=== PATIENT | male | born 1960 | race Caucasian/White ===

== ENCOUNTER 2018-11-16 01:50 | Outpatient (CLI) | payer MEDICARE, MEDICAID, SELFPAY ==
--- NOTE | 2018-11-16 08:10 | DI.RAD_ITS ---
SYMPTOM/DIAGNOSIS: H/O HEAD AND NECK CA, ASSESS FOR DISEASE RECURRENCE FRONTAL AND LATERAL CHEST: Comparison is made with 10/12/17. Heart size and pulmonary vasculature are within normal limits. The lungs are clear and well expanded. No effusions or pneumothoraces are identified. Old healed left rib fractures are again seen. No pulmonary nodules are appreciated. IMPRESSION: No acute pulmonary process.
== END 2018-11-16 02:10 ==
PROVIDERS: PCP Nurse Practitioner; Visit Provider Nurse Practitioner
DX: C76.0 Malignant neoplasm of head, face and neck (principal); C32.0 Malignant neoplasm of glottis; Z12.89 Encounter for screening for malignant neoplasm of other sites
CPT/HCPCS: 71046

== ENCOUNTER 2018-11-27 14:27 | Outpatient (CLI) | payer MEDICARE, MEDICAID, SELFPAY ==
[2018-11-27 15:04] LABS: Abs Immature Grans 0.01 k/cumm (0.0-0.09); Absolute Basophil Count 0.05 k/cumm (0.0-0.2); Absolute Eosinophil Count 0.11 k/cumm (0.0-0.7); Absolute Lymphocyte Count 1.27 k/cumm (1.2-3.4); Absolute Monocyte Count 0.45 k/cumm (0.11-0.7); Absolute Neutrophil Count 3.43 k/cumm (1.2-6.7); Basophils % 0.9; Eosinophils % 2.1; HCT 39.5 % (40.0-50.0); HGB 13.4 g/dL (13.5-17.5); Immature Grans % 0.2; Lymphocytes % 23.9; Mean Corp. HGB Concentration 33.9 g/dL (32.0-36.0); Mean Corpuscular Hemoglobin 32.1 pg (27.0-33.0); Mean Corpuscular Volume 94.5 fL (80-95); Mean Platelet Volume 10.2 fL (8.0-11.0); Monocytes % 8.5; Neutrophils % 64.4; Platelet Count 179 x1000/uL (130-400); RBC 4.18 m/cumm (4.50-6.00); RBC Distribution Width 13.1 % (11.8-14.1); White Blood Cell Count 5.32 k/cumm (4.4-10.8)
[2018-11-27 16:30] LABS: ALT 78 U/L (12-78); AST 75 U/L (15-37); Albumin 3.7 g/dL (3.4-5.0); Alkaline Phosphatase 92 U/L (46-116); Anion Gap 9.3 mmol/L (3-11); BUN 6 mg/dL (7-18); Bilirubin, Total 0.4 mg/dL (0.2-1.0); CO2 26.7 mmol/L (21.0-32.0); CREATININE 0.91 mg/dL (0.70-1.30); Calcium 9.2 mg/dL (8.5-10.1); Chloride 101 mmol/L (98-107); Glucose 120 mg/dL (70-100); Potassium 4.2 mmol/L (3.5-5.1); Sodium 137 mmol/L (136-145); TSH 5.84 uIU/mL (0.358-3.74); Total Protein 7.2 g/dL (6.4-8.2)
== END 2018-11-27 14:47 ==
PROVIDERS: PCP Nurse Practitioner; Visit Provider Nurse Practitioner
DX: C76.0 Malignant neoplasm of head, face and neck (principal); E03.9 Hypothyroidism, unspecified
CPT/HCPCS: 36415; 80053; 84443; 85025

== ENCOUNTER 2019-03-16 02:02 | Outpatient (CLI) | payer MEDICARE, MEDICAID, SELFPAY ==
[2019-03-16 08:38] LABS: TSH (W/Ref FT4) 0.71 uIU/mL (0.358-3.74)
== END 2019-03-16 02:22 ==
PROVIDERS: PCP Family Medicine; Visit Provider Family Medicine
DX: E89.0 Postprocedural hypothyroidism (principal)
CPT/HCPCS: 36415; 84443

== ENCOUNTER → 2019-05-21 10:32 | Outpatient (BNVA) | payer OTHER, MEDICAID, SELFPAY | PROVIDERS: PCP Family Medicine; Referring Provider Family Medicine; Visit Provider Physical Therapy Assistant | DX: Z12.11 Encounter for screening for malignant neoplasm of colon (principal); Z85.21 Personal history of malignant neoplasm of larynx ==

== ENCOUNTER 2019-07-03 09:02 | Day surgery (SDC) | payer OTHER, SELFPAY ==
--- NOTE | 2019-07-03 07:15 | W.PM.HP.N ---
Date of service: 07/03/19 Time of Service: 09:45 Assessment and Plan (1) Encounter for screening colonoscopy: Current visit: No Status: Acute The patient is here for his first Colonoscopy pre-op. He has no family history of colon cancer. He has not had any bowel habit changes. -Discussed colonoscopy bowel prep as well as the procedure. Discussed possible complications of the procedure to include bleeding, pain, perforation, missed small lesion/polyp, sore throat, aspiration and adverse reaction to the medications. Questions were answered to patient?s satisfaction. No guarantees were implied or given. -He will be under going esophageal dilation on 06/04/19 prior to his procedure. -He will perform his tracheostomy care prior to his procedure to ensure a clear airway. 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 He denies a family history of colon cancer. He denies any changes in bowel habits including bloody or black tarry stools, abdominal pain, diarrhea or constipation. He denies constitutional symptoms. Denies use of marijuana or any other recreational or illegal drugs. He denies chest pain, palpitations, dyspnea or dyspnea with exertion. He denies prior history or family history of adverse reactions or complications with anesthesia. He under goes esophageal dilation x 3 months and is due to have his next treatment on 06/04/19, prior to his Colonoscopy. He has a tracheostomy, which he reports he is independent with its care. He will clear out any mucus prior to his procedure to ensure he has a clear airway. [facility] Medical History Genital herpes (Acute) High cholesterol (Chronic) Hypothyroidism (Chronic) Larynx cancer (Acute) Peripheral neuropathy (Acute) Thyroid cancer (Acute) Surgical History H/O thyroidectomy (Chronic) History of tracheostomy (Acute) Social History Smoking/Tobacco Use Status: Former Tobacco Use Drug use: Never Substance use type: does not use Details: alcohol: t-14 Do you feel safe at home: Yes Do you feel safe in your relationship?: Yes Meds Home Medications Medication Instructions Recorded Confirmed Type oxycodone 5 mg PO TID 04/07/15 07/03/19 History acyclovir 200 mg capsule 400 mg PO Q4H cap 03/09/19 07/03/19 History food supplemt, lactose-reduced ml PO ml 03/09/19 05/21/19 History 0.04 gram-1 kcal/mL oral liquid gabapentin 300 mg capsule 600 mg PO TID cap 03/09/19 07/03/19 History levothyroxine 100 mcg capsule 100 mcg PO DAILY 03/09/19 07/03/19 History nystatin 100,000 unit/gram topical 1 applic TP BID PRN 03/09/19 07/03/19 History cream acetaminophen [Tylenol] 325 mg PO ONCE PRN 07/03/19 07/03/19 History Allergies Allergy/AdvReac Type Severity Reaction Status Date / Time venom-honey bee Allergy Severe Anaphylaxsi Unverified 07/03/19 09:20 [bee venom (honey bee)] s Penicillins Allergy Intermediate Hives Unverified 07/03/19 09:21 Exam Resp Effort & Inspection: normal respiratory effort Auscultation: clear to auscultation bilaterally Cardio Rate: regular rate Rhythm: regular rhythm
--- NOTE | 2019-07-03 07:16 | W.COLOREPORT ---
Date of service: 07/03/19 Time of Service: 10:08 Colonoscopy Report Date of procedure: 07/03/19 Pre-op diagnosis general: Colon Cancer Screening Post-op diagnosis procedure note: same (and mild diverticulosis of the sigmoid colon) Procedure: Colonoscopy Surgeon: Julieta Noyola Anesthesia proc note operative: other (General/ ASA 3/Sheila Shepherd, GAMAL) Estimated blood loss (mL): 0 Pathology: none sent Complications: None Disposition: same day Indications: Mr. Gunderson is a pleasant 58 year old male who was seen in the office for his first colonoscopy. He has no family history of colon cancer that he is aware of. Risks, benefits and complications have been reviewed. Complications include but are not limited to bleeding, pain, perforation, missed small lesion/polyp, sore throat, aspiration and adverse reaction to the medications. Questions were entertained and answered to their satisfaction and they wished to proceed. No guarantees were given or implied. Prep: Miralax/Dulcolax Procedure Start Time: 10:08 Procedure End Time: 10:31 Retraction Time: 14 Findings: Mild diverticulosis otherwise normal colon Procedure Description: After informed consent was obtained the patient was taken to the procedure room and placed in a left decubitous position. Monitors were applied and a time out was done. The patients name, date of , procedure, allergies to medications and metal in their body was reviewed. The patient was then sedated. Once sedated and comfortable a rectal exam was done. External exam was normal. Internal exam revealed a normal sphincter tone and no palpable masses. The prostate could not be felt. The scope was then introduced and retro-flexed. No internal hemorrhoids were identified. The scope was then advanced to the cecum without difficulty. The TI and appendiceal orifice were identified. The prep was adequate. The scope was then slowly retracted over 14 minutes back into the rectum. There were no polyps identified. There was mild diverticulosis of the sigmoid colon. The scope was removed and the patient was woken up and taken back to Same day surgery in stable condition. The patient tolerated the procedure well and there were no immediate complications. Follow up: The patient should follow up in 10 years unless they develop changes in bowel habits or other new gastrointestinal complaints.
--- NOTE | 2019-07-03 07:18 | W.PM.DSUDISC ---
Discharge Plan Disposition Patient Disposition: HOME Condition: Good Discharge Details Reason For Visit: Colonoscopy Attending Provider: Julieta Noyola Primary Care Provider: Kasey العراقي Home Meds and New Rx's Prescriptions: Continued acyclovir 200 mg capsule 400 mg PO Q4H RF: 0 nystatin 100,000 unit/gram cream 1 applic TP BID PRNRF: 0 Boost 0.04 gram- 1 kcal/mL liquid PO RF: 0 levothyroxine 100 mcg capsule 100 mcg PO DAILY RF: 0 gabapentin 300 mg capsule 600 mg PO TID RF: 0 oxycodone 5 MG tablet 5 mg PO TID RF: 0 Discontinued polyethylene glycol 3350 17 gram/dose powder 238 g PO ONCE Qty: 238 RF: 0 bisacodyl [Dulcolax (bisacodyl)] 5 mg tablet,delayed release (DR/EC) 5 mg PO ONCE Qty: 4 RF: 0 No Action acetaminophen [Tylenol] 325 mg Capsule 325 mg PO ONCE PRNRF: 0 Discharge Instructions Instructions: Colonoscopy (GEN), Diverticulosis (ED) Additional Instructions: Findings: Mild diverticulosis Follow up: 10 years Please call if you develop: fevers >101.5 Nausea or Vomiting Abdominal pain that is not transient DAY SURGERY UNIT POST COLONOSCOPY INSTRUCTIONS 1. Because there will be medication in your system for the next 24 hours, you may feel a little sleepy. Your coordination will be affected. Therefore: a. Do not drive or operate dangerous equipment for 24 hours. b. Do not drink alcohol beverages for 24 hours (not even beer). c. Plan to go home and rest for the day. 2. Generally there are no restrictions on your activity after a day or so has gone by, but you may feel a bit fatigued for a few days. 3 After you arrive home you may have a light meal and return to a normal diet as you can tolerate it without feeling sick to your stomach. 4. After surgery, you may feel pain or discomfort. This should be only transient, but if it persists please contact your doctor. 5. If there are any questions regarding the findings of your procedure, please feel free to contact your doctor. 6. If you are unable to contact your doctor with a problem, contact the hospital at [phone]. 7. Continue all your regular medications unless directed otherwise. I understand the above instructions and have no questions. Signature of Patient or Responsible Adult Escort Date/Time Name of Responsible Adult Escort Signature of Nurse Date/Time Activity:: Activity as Tolerated Diet:: High Fiber diet Discharge Orders Discharge Orders: Discharge Order (Routine); Ordered 07/03/19 Ordered By: Julieta Noyola DS: Diagnosis Discharge Diagnosis (1) Encounter for screening colonoscopy: Status: Acute
[2019-07-03 09:16] VITALS: TEMP 36.3
[2019-07-03 09:26] VITALS: BP 131/83; PULSE 76; RESP 16; TEMP 36.3; O2SAT 100
[2019-07-03] MEDS: Lactated Ringers 1,000 ML 80 ML IV (09:45)
[2019-07-03] MEDS: Lidocaine 2% Pres-Free 5 ML VIAL (10:05)
[2019-07-03] MEDS: PROPOFOL 500 MG/50 ML BTL 45.4 MG (10:05)
--- NOTE | 2019-07-03 10:15 | NUR.NOTE ---
Nursing Note: Abdominal pressure applied for scope advancement.
[2019-07-03 11:11] VITALS: BP 131/78; PULSE 67; RESP 16; TEMP 36.6; O2SAT 98
== END 2019-07-03 11:28 | disposition home or self-care (01) ==
LOC: SUR 09:03
PROVIDERS: PCP Family Medicine; Visit Provider Surgery
PROC: 0DJD8ZZ Inspection of Lower Intestinal Tract, Via Natural or Artificial Opening Endoscopic (ICD-10-PCS; CPT 45378; principal; 2019-07-03 10:00)
DX: Z12.11 Encounter for screening for malignant neoplasm of colon (principal); K57.30 Diverticulosis of large intestine without perforation or abscess without bleeding; Z85.21 Personal history of malignant neoplasm of larynx; Z93.0 Tracheostomy status
CPT/HCPCS: G0121; NC

== ENCOUNTER 2019-11-01 08:44 | Outpatient (CLI) | payer OTHER, SELFPAY | END 2019-11-01 09:04 | PROVIDERS: PCP Family Medicine; Visit Provider Nurse Practitioner | DX: E03.9 Hypothyroidism, unspecified (principal) | CPT/HCPCS: 36415; 84443 ==

== ENCOUNTER 2020-04-11 02:03 | Outpatient (CLI) | payer OTHER, MEDICAID, SELFPAY ==
[2020-04-11 08:35] LABS: Abs Immature Grans 0.03 k/cumm (0.0-0.09); Absolute Basophil Count 0.05 k/cumm (0.0-0.2); Absolute Eosinophil Count 0.13 k/cumm (0.0-0.7); Absolute Lymphocyte Count 1.47 k/cumm (1.2-3.4); Absolute Monocyte Count 0.78 k/cumm (0.11-0.7); Absolute Neutrophil Count 5.07 k/cumm (1.2-6.7); Basophils % 0.7; Eosinophils % 1.7; HGB 14.7 g/dL (13.5-17.5); Immature Grans % 0.4 %; Lymphocytes % 19.5; Mean Corpuscular Hemoglobin 33.7 pg (27.0-33.0); Mean Corpuscular Volume 96.3 fL (80-95); Mean Platelet Volume 10.2 fL (8.0-11.0); Monocytes % 10.4; Neutrophils % 67.3; Platelet Count 242 x1000/uL (130-400); RBC 4.36 m/cumm (4.50-6.00); RBC Distribution Width 13.3 % (11.8-14.1); White Blood Cell Count 7.53 k/cumm (4.4-10.8)
[2020-04-11 09:38] LABS: ALT 86 U/L (16-63); AST 91 U/L (15-37); Albumin 3.6 g/dL (3.4-5.0); Alkaline Phosphatase 105 U/L (46-116); Anion Gap 9.1 mmol/L (3-11); BUN 5 mg/dL (7-18); Bilirubin, Total 0.9 mg/dL (0.2-1.0); CO2 26.9 mmol/L (21.0-32.0); CREATININE 0.88 mg/dL (0.70-1.30); Calcium 8.6 mg/dL (8.5-10.1); Chloride 103 mmol/L (98-107); Glucose 94 mg/dL (74-106); Potassium 4.2 mmol/L (3.5-5.1); Sodium 139 mmol/L (136-145); TSH 1.63 uIU/mL (0.36-3.74); Total Protein 7.2 g/dL (6.4-8.2)
== END 2020-04-11 02:23 ==
PROVIDERS: PCP Family Medicine; Visit Provider Nurse Practitioner
DX: C76.0 Malignant neoplasm of head, face and neck (principal); E03.9 Hypothyroidism, unspecified
CPT/HCPCS: 36415; 80053; 84443; 85025

== ENCOUNTER 2020-07-04 10:09 | Outpatient (REF) | payer OTHER, MEDICAID, SELFPAY ==
[2020-07-04 22:16] LABS: Iron 138 ug/dL (65-175); Total Iron Binding Capacity 238 ug/dL (250-450); Transferrin Sat 58 % (20-55)
[2020-07-04 22:52] LABS: ALT 57 U/L (16-63); AST 56 U/L (15-37); Albumin 3.6 g/dL (3.4-5.0); Alkaline Phosphatase 111 U/L (46-116); Bilirubin, Total 0.6 mg/dL (0.2-1.0); Total Protein 7.3 g/dL (6.4-8.2)
[2020-07-04 22:59] LABS: Ferritin 1366 ng/mL (26-388)
[2020-07-04 23:13] LABS: Bilirubin, Direct 0.15 mg/dL (0.00-0.20)
[2020-07-07 09:52] LABS: HBs Antibody, Quant <3.1 mIU/mL (See Note); Hepatitis B Surface Ab Negative (See Note)
[2020-07-07 10:08] LABS: Hepatitis B Surface Ag Negative (Negative)
[2020-07-07 10:50] LABS: Hepatitis C Ab w Rflx HCV PCR Negative (Negative)
[2020-07-07 11:05] LABS: Hep B Core Antibody Negative (Negative)
== END 2020-07-04 10:29 ==
LOC: NCHCN 10:09
PROVIDERS: PCP Family Medicine; Visit Provider Family Medicine
DX: R79.89 Other specified abnormal findings of blood chemistry (principal); Z11.59 Encounter for screening for other viral diseases
CPT/HCPCS: 80076; 86704; 86706; 86803; 87340; 82728; 83540; 83550

== ENCOUNTER 2020-09-12 08:42 | Outpatient (REF) | payer OTHER, MEDICAID, SELFPAY ==
[2020-09-12 20:26] LABS: Iron 108 ug/dL (65-175); Total Iron Binding Capacity 250 ug/dL (250-450); Transferrin Sat 43 % (20-55)
[2020-09-12 20:32] LABS: Ferritin 811 ng/mL (26-388); GGT 163 U/L (15-85)
[2020-09-13 20:53] LABS: ALT 67 U/L (16-63); AST 56 U/L (15-37); Albumin 3.8 g/dL (3.4-5.0); Alkaline Phosphatase 108 U/L (46-116); Bilirubin, Total 0.7 mg/dL (0.2-1.0); Total Protein 7.2 g/dL (6.4-8.2)
== END 2020-09-12 09:02 ==
LOC: NCHCN 08:42
PROVIDERS: PCP Family Medicine; Visit Provider Family Medicine
DX: R79.89 Other specified abnormal findings of blood chemistry (principal)
CPT/HCPCS: 80076; 81256; 82728; 82977; 83540; 83550

== ENCOUNTER 2020-10-28 00:30 | Outpatient (CLI) | payer OTHER, MEDICAID, SELFPAY ==
--- NOTE | 2020-10-28 | DI.US_ITS ---
EXAM: US ABDOMEN CLINICAL HISTORY: ELEVATED LFT'S,R79.89 TECHNIQUE: Ultrasound abdomen performed using standard protocol. COMPARISON: No exams were available for comparison FINDINGS: ABDOMINAL AORTA AND IVC: Visualized portions normal caliber. PANCREAS: Normal where visualized. LIVER: There is increased echogenicity of the liver consistent with fatty infiltration. The liver me asures 14.7 cm in length. Hepatopedal flow in the Portal Vein. GALLBLADDER: No evidence of cholelithiasis. No evidence of wall thickening. No pericholecystic fluid identified. BILIARY SYSTEM: Common bile duct measures < 7 mm. No intrahepatic biliary ductal dilation. MAYO'S SIGN: Negative. KIDNEYS: Kidneys are symmetric in size. No evidence of renal calculi. No evidence of hydronephrosis. No renal mass or cyst identified. SPLEEN: Not enlarged. ASCITES: None seen. IMPRESSION: Fatty infiltration of the liver. DATA REPOSITORY:
== END 2020-10-28 00:50 ==
PROVIDERS: PCP Family Medicine; Visit Provider Family Medicine
DX: K76.0 Fatty (change of) liver, not elsewhere classified (principal); R79.89 Other specified abnormal findings of blood chemistry
CPT/HCPCS: 76700

== ENCOUNTER 2020-12-30 09:12 | Outpatient (REF) | payer OTHER, MEDICAID, SELFPAY ==
[2020-12-31 14:32] LABS: COVID-19 RT-PCR UVMMC Result Negative (Negative)
== END 2020-12-30 09:13 | disposition home or self-care (01) ==
LOC: NCHCN 09:12
PROVIDERS: PCP Family Medicine; Visit Provider Family Medicine
DX: Z20.822 Contact with and (suspected) exposure to COVID-19 (principal); Z01.818 Encounter for other preprocedural examination
CPT/HCPCS: U0003

== ENCOUNTER 2021-01-06 13:17 | Outpatient (REF) | payer OTHER, MEDICAID, SELFPAY ==
[2021-01-06 16:15] LABS: HCT 47.8 % (40.0-50.0); MCH 32.9 pg (27.0-33.0); MCHC 33.5 % (32.0-36.0); MCV 98.4 fL (80-95); MPV 11.2 fL (8.0-11.0); Platelet Count 265 10^3/uL (130-400); RBC 4.86 10^6/uL (4.36-5.78); RDW 12.8 % (11.8-14.1); RDW-SD 46.5 fL; WBC 5.87 10^3/uL (4.4-10.8)
[2021-01-06 17:41] LABS: ALT 49 U/L (16-63); AST 55 U/L (15-37); Albumin 3.6 g/dL (3.4-5.0); Alkaline Phosphatase 103 U/L (46-116); Bilirubin, Total 0.5 mg/dL (0.2-1.0); Ferritin 545 ng/mL (26-388); TSH (W/Ref FT4) 1.44 uIU/mL (0.36-3.74); Total Protein 7.5 g/dL (6.4-8.2)
[2021-01-06 18:01] LABS: Bilirubin, Direct 0.09 mg/dL (0.00-0.20)
[2021-01-14 18:31] LABS: Result Summary NEGATIVE; Specimen WB Whole Blood
== END 2021-01-06 13:18 | disposition home or self-care (01) ==
LOC: NCHCN 13:17
PROVIDERS: PCP Family Medicine; Visit Provider Family Medicine
DX: K76.0 Fatty (change of) liver, not elsewhere classified (principal); R79.89 Other specified abnormal findings of blood chemistry; E89.0 Postprocedural hypothyroidism
CPT/HCPCS: 80076; 85027; 81256; 82728; 84443

== ENCOUNTER 2021-01-26 03:55 | Outpatient (RCR) | payer OTHER, MEDICAID, SELFPAY ==
--- NOTE | 2021-01-26 10:00 | HOLTER_ITS ---
APPROVED REPORT Exam Type: HOLTER MONITOR APPLICATION Reason for Test: TACH Patient Location: O Conclusion This was a 24-hour Holter monitor ordered for tachycardia Rhythm throughout was sinus. Average heart rate was 85. Minimum was 64 and maximum 155 There were no significant ventricular or supraventricular dysrhythmias There was no atrial fibrillation, no high-grade AV block, no pauses greater than 3 seconds No patient symptoms were reported
== END 2021-02-11 23:59 | disposition home or self-care (01) ==
LOC: RT 03:55
PROVIDERS: PCP Family Medicine; Visit Provider Family Medicine
DX: R00.0 Tachycardia, unspecified (principal)
CPT/HCPCS: 93227; 93225; 93226

== ENCOUNTER 2021-01-28 09:02 | Outpatient (REF) | payer OTHER, MEDICAID, SELFPAY ==
[2021-01-28 15:39] LABS: Anion Gap 11.2 mmol/L (3-11); BUN 4 mg/dL (7-18); CO2 27.8 mmol/L (21.0-32.0); CREATININE 0.7 mg/dL (0.70-1.30); Calcium 9.6 mg/dL (8.5-10.1); Chloride 105 mmol/L (98-107); Glucose 96 mg/dL (74-106); Potassium 4.3 mmol/L (3.5-5.1); Sodium 144 mmol/L (136-145)
== END 2021-01-28 09:03 | disposition home or self-care (01) ==
LOC: NCHCN 09:02
PROVIDERS: PCP Family Medicine; Visit Provider Family Medicine
DX: R00.0 Tachycardia, unspecified (principal)
CPT/HCPCS: 80048

== ENCOUNTER 2021-05-04 00:38 | Outpatient (CLI) | payer OTHER, MEDICAID, SELFPAY ==
--- NOTE | 2021-05-04 | DI.NM_ITS ---
APPROVED REPORT Exam: Pharmacologic with low level exercise Patient Location: Out-Patient Room/Bed: Stress Nurse: Junie Dillon RN; Mer Torres RN Ordering Provider:RADHA RASCON, Contact Number: [phone] BMI: 22.91 Baseline Rhythm: Sinus Rhythm Comment: T wave inversion lead III Indications: tachycardia, BENITEZ Medical History Medical History: HLD, hypothyroid, larynx cancer, thyroid cancer, peripheral neuropathy Cardiac Medications: gabapentin, levothyroxine, oxycodone Allergies: PCN, honey bee venom Cardiac Risk Factors: HTN, HLD, former smoker Previous Cardiac Procedures: none Pretest Chest Pain Characteristics: none Exercise History: Sedentary Physical Disabilities: none Lung Sounds: Clear to auscultation Heart Sounds: Regular Stress Test Details Test: Pharmacologic stress was paired with low level exercise. Nuclear Acquisition: Rest Tc-99m/Stress Tc-99m 1 day Rest Isotope: Tc-99m Sestamibi. Dose: 10.5 Date: 05/04/2021 Injection Time: 1100 Stress Isotope: Tc-99m Sestamibi. Dose: 32.8 Date: 05/04/2021 Injection Time: 1235 HR Resting HR Supine: 77 bpm Max Heart Rate (APMHR): 158 bpm Resting HR Standin bpm Target HR (85% APMHR): 134 bpm Max HR Achieved: 162 bpm % of APMHR: 102 Recovery HR: 98 bpm HR response to stress: Accelerated HR response to stress BP Resting BP Supine: 130/86 mmHg Resting BP Standin/92 mmHg Max BP: 152/84 mmHg Recovery BP: 128/82 mmHg ECG Resting ECG: Sinus Rhythm Ectopy: none Comment: T wave inversion lead III Stress ECG: Sinus Tachycardia ST Change: No significant ST segment changes noted Arrhythmia: none Recovery ECG: Sinus Rhythm Recovery ST Change: No significant ST segment changes noted Recovery Arrhythmia: none Clinical Reason for Termination: inability to safely walk on treadmill Stress Symptoms: SOB Exercise duration: 0 min40 sec Rate Pressure Product: [id number] Stress ECG Conclusion 1. The resting electrocardiogram showed poor R wave progression, nonspecific IVCD 2. Patient exercised briefly on the treadmill and then received pharmacologic stress with regadenoson 3. Accelerated heart rate response to exercise. The patient achieved greater than 100% of predicted heart rate for age 4. Electrocardiographically there was no evidence of myocardial ischemia with exercise Stress Test Summary STAGE Time (mins) Speed (mph) Grade (%) HR BP SYMPTOMS METS Supine 77 130/86 Standing 88 138/92 1 min post Lexiscan injection 138 SOB 3 min post Lexiscan injection 143 152/84 6 min post Lexiscan injection 115 146/84 SOB resolved 9 min post Lexiscan injection 98 128/82 exercise suspended, pt unable to walk safely on treadmill for Andrae Protocol. Lexiscan with low level exercise with treadmill speed 1.2MPH and 0% grade MPI Conclusion Myocardial perfusion is normal without evidence of ischemia or prior infarction EF is 79% Radiologist Interpretation Radiologist agrees with Net Application Support Specialist's Interpretation. Radiologist Interpretation by: Ricky Menchaca MD Interpretation Date/Time: 05/05/2021 14:39:07
[2021-05-04] MEDS: Regadenoson 0.4 MG/5 ML SYR IVP (12:58)
== END 2021-05-04 00:58 ==
PROVIDERS: PCP Family Medicine; Visit Provider Family Medicine
DX: R00.0 Tachycardia, unspecified (principal); R06.09 Other forms of dyspnea; I10 Essential (primary) hypertension; E78.5 Hyperlipidemia, unspecified; Z87.891 Personal history of nicotine dependence
CPT/HCPCS: 78452; 93016; 93018; 93017; J2785

== ENCOUNTER 2021-08-25 00:56 | Outpatient (CLI) | payer OTHER, MEDICAID, SELFPAY ==
--- NOTE | 2021-08-25 13:56 | DI.US_ITS ---
APPROVED REPORT EXAM: Comprehensive 2D, Doppler, and color-flow Echocardiogram Patient Location: Out-Patient Casino Runner: Hafsa Motley RDCS (AE) Indications: Tachycardia, BENITEZ Other Information Study Quality: Fair. Technically limited study due to body habitus. Conclusion Normal left ventricular wall thickness and chamber size. Estimated ejection fraction is 55%. There are no segmental wall motion abnormalities Normal right ventricular size and systolic function Both atria are normal in size There are no structural or hemodynamically significant valvular abnormalities Wall motion Left Ventricle The left ventricle is normal size. The left ventricular systolic function is normal. The left ventric ular ejection fraction is within the normal range. There is normal left ventricular wall thickness. T here is normal LV segmental wall motion.. There is no ventricular septal defect visualized. LVEF is 5 5%. Right Ventricle The right ventricle is normal size. The right ventricular systolic function is normal. The RVSP is 18 .5mmHg. Atria The left atrium size is normal. The right atrium size is normal. The interatrial septum is intact wit h no evidence for an atrial septal defect. Aortic Valve The aortic valve is normal in structure. Aortic valve is trileaflet. There is no aortic valvular sten osis. No aortic regurgitation is present. Mitral Valve The mitral valve is normal in structure. No evidence of mitral valve stenosis. Trace mitral regurgita tion. Tricuspid Valve The tricuspid valve is normal in structure. There is no tricuspid valve stenosis. Trace tricuspid reg urgitation. Pulmonic Valve The pulmonary valve is normal in structure. There is no pulmonic valvular stenosis. Trace pulmonic re gurgitation. Great Vessels The aortic root is normal in size. The ascending aorta is normal in size. IVC is normal in size and c ollapses >50% with inspiration. Pericardium There is no pericardial effusion. 2D Dimensions IVSD d PLAX 0.75 cm M: 0.6-1.2 LV Vol A2C d MOD 54.1 mL LVPW d PLAX 0.79 cm M: 0.6 - 1.2 LV Vol A4C d MOD 59.2 mL LVID d PLAX 4.34 cm M: 4.2 - 5.8 LA vol/ BSA A2C s A-L 13.5 mL/m2 LVDs 3.25 cm M: 2.5 - 4.0 LA vol/ BSA A4C s A-L 8.9 mL/m2 Ao Root d 2.68 cm M: 3.1 - 3.7 LA Vol/ BSA Biplane s A-L 11.1 mL/m2 RA Area A4C 9.36 cm2 LA Area A4C s MOD 8.71 cm2 RA Vol/ BSA A4C s A-L 11.3 mL/m2 LA Area A2C s MOD 10.58 cm2 Ao Asc Diam d 3.19 cm M: 2.6 - 3.4 LV EF A4C MOD 50.4 % LV EF Teichholz 49.7 % LV EF A2C MOD 44.7 % LVEF (Lyles's) 46.91 % M: 52 - 72 LV EF Biplane MOD 46.9 % LV Volume 46.35 mL M: 62 - 150 SV 27.49 mL LV Volume Index 26.94 mL/m2 M: 34 - 74 SV Index 15.99 mL/m2 LV Vol Biplane MOD 58.6 mL FS 24.95 % M-Mode TAPSE 1.88 cm (M/F) >1.7 LV Diastology MV E' medial 0.088 (>0.07 m/s) E/A Ratio 0.7 LV E/e MED 7.10 (<14) MV E Vmax 0.63 (0.4-1.3 m/s) MV E' lateral 0.100 (>0.1 m/s) MV A Vmax 0.95 (0.4-1.3 m/s) LV E/e LAT 6.25 (<14) MV E/A Ratio 0.65 MV E/E' medial 7.11 MV E/E' lateral 6.27 Aortic Valve LVOT Area 2.86 cm2 AoV Area Vmax 2.20 cm2 LVOT Vmax 0.78 m/s AoV Area/ BSA (Vmax) 1.28 cm2/m2 LVOT Mean Manoj. 0.48 m/s MARLA Mean Manoj. 1.96 cm2 LVOT Peak Grad 2.4 mmHg MARLA Mean Manoj. Index 1.14 cm2/m2 LVOT Mean Grad 1.1 mmHg LVOT VTI 0.152 m LVOT Diam s 1.90 cm AoV Vmax 1.02 m/s Velocity Ratio 0.76 AoV Mean Manoj. 0.71 m/s AoV Peak Grad 4.1 mmHg LVOT SV 43.65 mL AoV Mean Grad 2.2 mmHg AoV VTI 0.194 m AoV Area VTI 2.24 cm2 AoV Area/ BSA (VTI) 1.31 cm/m2 Mitral Valve MV DT 243 (160-240 msec) MV PHT 70 msec MV Area PHT 3.12 cm2 MV VTI 0.285 m MV Area VTI 1.53 (4.0-6.0 cm2) Pulmonary Valve PV Vmax 1.22 (0.5-1.5 m/s) RVOT Peak Gr. 1.94 mmHg PV Peak Grad 6.0 mmHg RVOT Mean Gr. 0.95 mmHg PV Mean Grad 2.8 mmHg RVOT VTI 0.117 m PV VTI 0.208 m RVOT Vmax 0.70 m/s Tricuspid Valve TR Peak Grad 15.4 mmHg TR Vmax 1.97 m/s RA Pressure 3.00 mmHg RVSP (TR) 18.5 mmHg
== END 2021-08-25 01:16 ==
PROVIDERS: PCP Family Medicine; Visit Provider Family Medicine
DX: R06.09 Other forms of dyspnea (principal); R00.0 Tachycardia, unspecified; R93.9 Diagnostic imaging inconclusive due to excess body fat of patient
CPT/HCPCS: 93306

== ENCOUNTER 2021-12-14 01:31 | Outpatient (CLI) | payer OTHER, MEDICAID, SELFPAY ==
[2021-12-14 10:54] LABS: Source Nasal/Nares
[2021-12-14 14:15] LABS: COVID-19 PCR Negative (Negative)
== END 2021-12-14 01:32 | disposition home or self-care (01) ==
LOC: LBO 01:32
PROVIDERS: PCP Family Medicine; Visit Provider Otolaryngology Otolaryngology/Facial Plastic Surgery
DX: Z20.822 Contact with and (suspected) exposure to COVID-19 (principal); Z01.818 Encounter for other preprocedural examination
CPT/HCPCS: 87635

== ENCOUNTER 2021-12-31 18:44 | Outpatient (REF) | payer MEDICARE, MEDICAID, SELFPAY ==
[2021-12-31 16:24] LABS: HCT 49.3 % (40.0-50.0); HGB 16.4 g/dL (13.5-17.5); MCH 31.8 pg (27.0-33.0); MCHC 33.3 % (32.0-36.0); MCV 95.5 fL (80-95); MPV 11.4 fL (8.0-11.0); Platelet Count 221 10^3/uL (130-400); RBC 5.16 10^6/uL (4.36-5.78); RDW 12.3 % (11.8-14.1); RDW-SD 44.1 fL; WBC 7.23 10^3/uL (4.4-10.8)
[2021-12-31 18:16] LABS: ALT 50 U/L (16-63); AST 50 U/L (15-37); Albumin 3.8 g/dL (3.4-5.0); Alkaline Phosphatase 113 U/L (46-116); Anion Gap 10.3 mmol/L (3-11); BUN 5 mg/dL (7-18); Bilirubin, Total 0.5 mg/dL (0.2-1.0); CO2 27.7 mmol/L (21.0-32.0); CREATININE 0.8 mg/dL (0.70-1.30); Calcium 9.1 mg/dL (8.5-10.1); Calculated LDL 139 mg/dL (<100); Chloride 103 mmol/L (98-107); Cholesterol 256 mg/dL (<200); Ferritin 441 ng/mL (26-388); Folate 5.4 ng/mL (8.6-20.0); Glucose 89 mg/dL (74-106); HDL Cholesterol 99 mg/dL (40-60); Potassium 4.8 mmol/L (3.5-5.1); Sodium 141 mmol/L (136-145); TSH (W/Ref FT4) 1.92 uIU/mL (0.36-3.74); Total Protein 7.9 g/dL (6.4-8.2); Triglyceride 94 mg/dL (<150)
[2022-01-04 12:20] LABS: HIV-1/2 Ag & Ab Screen Negative (Negative)
== END 2021-12-31 18:45 | disposition home or self-care (01) ==
LOC: NCHCN 18:44
PROVIDERS: PCP Family Medicine; Visit Provider Family Medicine
DX: E78.5 Hyperlipidemia, unspecified (principal); K76.0 Fatty (change of) liver, not elsewhere classified; E89.0 Postprocedural hypothyroidism; D75.89 Other specified diseases of blood and blood-forming organs
CPT/HCPCS: 80053; 80061; 85027; 87389; 82728; 82746; 84443

== ENCOUNTER 2022-01-01 01:14 | Outpatient (CLI) | payer MEDICARE, MEDICAID, SELFPAY ==
[2022-01-01 13:04] LABS: Source Nasal/Nares
[2022-01-01 17:39] LABS: COVID-19 PCR Negative (Negative)
== END 2022-01-01 01:15 | disposition home or self-care (01) ==
LOC: LBO 01:15
PROVIDERS: PCP Family Medicine; Visit Provider Otolaryngology Otolaryngology/Facial Plastic Surgery
DX: Z20.822 Contact with and (suspected) exposure to COVID-19 (principal)
CPT/HCPCS: 87635; U0005

== ENCOUNTER 2022-03-23 20:50 | Outpatient (REF) | payer MEDICARE, MEDICAID, SELFPAY ==
[2022-03-23 16:14] LABS: HCT 43.7 % (40.0-50.0); HGB 14.5 g/dL (13.5-17.5); MCH 32.4 pg (27.0-33.0); MCHC 33.2 % (32.0-36.0); MCV 98 fL (80-95); MPV 10.7 fL (8.0-11.0); Platelet Count 177 10^3/uL (130-400); RBC 4.47 10^6/uL (4.36-5.78); RDW 13.2 % (11.8-14.1); WBC 5.22 10^3/uL (4.4-10.8)
[2022-03-23 18:00] LABS: ALT 63 U/L (16-63); AST 68 U/L (15-37); Albumin 3.4 g/dL (3.4-5.0); Alkaline Phosphatase 132 U/L (46-116); Anion Gap 9.9 mmol/L (3-11); BUN 5 mg/dL (7-18); Bilirubin, Total 0.7 mg/dL (0.2-1.0); CO2 28.1 mmol/L (21.0-32.0); CREATININE 0.8 mg/dL (0.70-1.30); Calcium 8.6 mg/dL (8.5-10.1); Chloride 104 mmol/L (98-107); Folate 3.5 ng/mL (8.6-20.0); Glucose 101 mg/dL (74-106); Potassium 4.3 mmol/L (3.5-5.1); Sodium 142 mmol/L (136-145); TSH (W/Ref FT4) 0.25 uIU/mL (0.36-3.74); Total Protein 7.1 g/dL (6.4-8.2); Vitamin B12 292 pg/mL (193-986)
[2022-03-23 19:13] LABS: FREE T4 1.12 ng/dL (0.76-1.46)
== END 2022-03-23 20:51 | disposition home or self-care (01) ==
LOC: NCHCN 20:50
PROVIDERS: PCP Family Medicine; Visit Provider Family Medicine
DX: E89.0 Postprocedural hypothyroidism (principal); K76.0 Fatty (change of) liver, not elsewhere classified; R26.89 Other abnormalities of gait and mobility; E53.8 Deficiency of other specified B group vitamins
CPT/HCPCS: 80053; 85027; 82607; 82746; 84439; 84443

== ENCOUNTER → 2022-03-31 01:15 | Outpatient (CLI) | payer MEDICARE, MEDICAID, SELFPAY ==
--- NOTE | 2022-03-31 | DI.CTLCSR_ITS ---
Exam(s) CT CHEST LUNG CANCER SCREEN EXAM: CT CHEST LUNG CANCER SCREEN CLINICAL HISTORY: TOBACCO USE, QUIT, Z87.891, SCREENING FOR LUNG CA. TECHNIQUE: Imaging Protocol: Low Dose Technique CONTRAST MATERIAL: None COMPARISON: CT NECK AND CHEST WITH CONTRAST from 10/14/2015 FINDINGS: CHEST: Tracheostomy again noted. LUNGS: There are no ominous pulmonary nodules. There are no confluent infiltrates. There is platelik e atelectasis/scarring in the lingular segment of the left lung which is unchanged from 2015. There are no pleural effusions. MEDIASTINUM: There is no obvious hilar nor mediastinal adenopathy. CARDIAC: Heart size is normal. There is no pericardial effusion.Caliber of the thoracic aorta is wit hin normal limits. OTHER: No obvious adrenal masses in the field of view of this study OSSEOUS: No significant osseous lesions.No fractures. IMPRESSION: 1. Scarring in the lingular segment of the left lung, unchanged from 2015. 2. No concerning pulmonary nodules. No pleural effusions. No obvious intrathoracic adenopathy. 3. Lung RADS Cat 1 - Negative: No nodules and definitely benign nodules Lung-RADS 1.0 CATEGORIES: Category 0 - Prior chest CT exam(s) being located for comparison. Category 1 - Annual screening in 12 months. No nodules or definitely benign nodules. Category 2 - Annual screening in 12 months. Benign appearance. Nodules with low likelihood of becomin g active cancer. Category 3 - 6-month follow-up. Probably benign. Short-term follow-up suggested. Nodules with low lik elihood of becoming active cancer. Category 4A - 3-month follow-up and CT/PET if >8 mm in size. Suspicious finding. Findings which requi re additional testing. Category 4B - Findings which require additional testing and tissue sampling. Category 4X - Category 3 or 4 nodules with additional features or imaging findings that increases the suspicion of malignancy. Modifier S- Potentially clinically significant findings (non lung cancer) RADIATION DOSE DELIVERED: 69.6mGy.cm Total DLP 1.84mGyCTDIvol DATA REPOSITORY: All CT scans at this facility are submitted to the National Radiology Data Registry (NRDR) Dose Index Registry (DIR) with the [employer] (A[employer]). RADIATION OPTIMIZATION: All CT scans at this facility use at least one of these dose optimization te chniques: automated exposure control; mA and/or kV adjustment per patient size (includes targeted exa ms where dose is matched to clinical indication); or iterative reconstruction.
== END ==
PROVIDERS: PCP Family Medicine; Visit Provider Family Medicine
DX: Z12.2 Encounter for screening for malignant neoplasm of respiratory organs (principal); Z87.891 Personal history of nicotine dependence; J98.4 Other disorders of lung; Z93.0 Tracheostomy status
CPT/HCPCS: 71271

== ENCOUNTER 2022-03-31 08:55 | Outpatient (CLI) | payer MEDICARE, MEDICAID, SELFPAY ==
[2022-03-31 12:28] LABS: Iron 76 ug/dL (65-175); Total Iron Binding Capacity 258 ug/dL (250-450); Transferrin Sat 29 % (20-55)
[2022-03-31 12:42] LABS: Ferritin 507 ng/mL (26-388)
[2022-04-01 09:13] LABS: IgA 421 mg/dL (85-499); IgG 966 mg/dL (610-1,616); IgM 199 mg/dL (35-242)
[2022-04-01 16:09] LABS: ANA Interpretation Negative (Negative)
[2022-04-01 21:03] LABS: Liver/Kidney Microsome Type 1 <5.0 U
[2022-04-01 22:04] LABS: Mitochondrial Ab, M2 <0.1 U
[2022-04-02 09:57] LABS: Ceruloplasmin 30.1 mg/dL
[2022-04-02 11:45] LABS: Smooth Muscle Ab Screen Negative (Negative)
== END 2022-03-31 08:56 | disposition home or self-care (01) ==
LOC: LBO 08:56
PROVIDERS: PCP Family Medicine; Visit Provider Family Medicine
DX: R79.89 Other specified abnormal findings of blood chemistry (principal)
CPT/HCPCS: 36415; 82390; 82784; 83516; 81256; 82728; 83540; 83550; 86038; 86255

== ENCOUNTER 2022-06-09 14:40 | Outpatient (REF) | payer MEDICARE, MEDICAID, SELFPAY ==
[2022-06-09 16:22] LABS: HCT 43.8 % (40.0-50.0); MCH 32.5 pg (27.0-33.0); MCHC 34.2 % (32.0-36.0); MCV 95 fL (80-95); MPV 11.3 fL (8.0-11.0); Platelet Count 187 10^3/uL (130-400); RBC 4.62 10^6/uL (4.36-5.78); RDW 12.8 % (11.8-14.1); WBC 4.93 10^3/uL (4.4-10.8)
[2022-06-09 16:51] LABS: ALT 241 U/L (16-63); AST 360 U/L (15-37); Albumin 3.6 g/dL (3.4-5.0); Alkaline Phosphatase 98 U/L (46-116); Bilirubin, Direct 0.3 mg/dL (0.0-0.2); Bilirubin, Total 1.1 mg/dL (0.2-1.0); TSH (W/Ref FT4) 8.84 uIU/mL (0.36-3.74); Total Protein 7.6 g/dL (6.4-8.2)
[2022-06-09 18:01] LABS: Folate 16.1 ng/mL (8.6-20.0); Vitamin B12 622 pg/mL (193-986)
== END 2022-06-09 14:41 | disposition home or self-care (01) ==
LOC: NCHCN 14:40
PROVIDERS: PCP Family Medicine; Referring Provider Family Medicine; Visit Provider Family Medicine
DX: R79.89 Other specified abnormal findings of blood chemistry (principal); K76.0 Fatty (change of) liver, not elsewhere classified; D53.1 Other megaloblastic anemias, not elsewhere classified; E89.0 Postprocedural hypothyroidism
CPT/HCPCS: 80076; 85027; 82607; 82746; 84439; 84443

== ENCOUNTER 2023-01-12 15:29 | Outpatient (REF) | payer MEDICARE, MEDICAID, SELFPAY ==
[2023-01-12 15:21] LABS: ALT 70 U/L (16-63); AST 83 U/L (15-37); Albumin 3.5 g/dL (3.4-5.0); Alkaline Phosphatase 118 U/L (46-116); Bilirubin, Direct 0.2 mg/dL (0.0-0.2); Bilirubin, Total 0.8 mg/dL (0.2-1.0); TSH (W/Ref FT4) 6.32 uIU/mL (0.36-3.74); Total Protein 7.6 g/dL (6.4-8.2)
[2023-01-12 15:41] LABS: FREE T4 1.02 ng/dL (0.76-1.46)
== END 2023-01-12 15:30 | disposition home or self-care (01) ==
LOC: NCHCN 15:29
PROVIDERS: PCP Family Medicine; Visit Provider Family Medicine
DX: E89.0 Postprocedural hypothyroidism (principal); K76.0 Fatty (change of) liver, not elsewhere classified
CPT/HCPCS: 80076; 84439; 84443

== ENCOUNTER 2023-02-28 13:27 | Outpatient (REF) | payer MEDICARE, MEDICAID, SELFPAY ==
[2023-02-28 16:24] LABS: TSH (W/Ref FT4) 6.14 uIU/mL (0.36-3.74)
[2023-02-28 16:42] LABS: FREE T4 1.05 ng/dL (0.76-1.46)
== END 2023-02-28 13:28 | disposition home or self-care (01) ==
LOC: NCHCN 13:27
PROVIDERS: PCP Family Medicine; Visit Provider Family Medicine
DX: E89.0 Postprocedural hypothyroidism (principal)
CPT/HCPCS: 84439; 84443

== ENCOUNTER 2023-06-08 12:00 | Outpatient (REF) | payer MEDICARE, MEDICAID, SELFPAY ==
[2023-06-08 20:17] LABS: ALT 29 U/L (16-63); AST 31 U/L (15-37); Albumin 3.4 g/dL (3.4-5.0); Alkaline Phosphatase 93 U/L (46-116); Anion Gap 8.9 mmol/L (3-11); BUN 5 mg/dL (7-18); CO2 27.1 mmol/L (21.0-32.0); CREATININE 0.8 mg/dL (0.70-1.30); Calcium 9.1 mg/dL (8.5-10.1); Chloride 107 mmol/L (98-107); Estimated GFR 98.83 (mL/min/1.73m2); Folate 7.9 ng/mL (8.6-20.0); Glucose 95 mg/dL (74-106); Potassium 4.8 mmol/L (3.5-5.1); Sodium 143 mmol/L (136-145); TSH (W/Ref FT4) 1.73 uIU/mL (0.36-3.74); Total Protein 7.3 g/dL (6.4-8.2); Vitamin B12 267 pg/mL (193-986)
[2023-06-14 10:14] LABS: Methylmalonic Acid 0.28 nmol/mL (<=0.40)
== END 2023-06-08 12:01 | disposition home or self-care (01) ==
LOC: NCHCN 12:00
PROVIDERS: PCP Family Medicine; Visit Provider Family Medicine
DX: E89.0 Postprocedural hypothyroidism (principal); K76.0 Fatty (change of) liver, not elsewhere classified; D52.9 Folate deficiency anemia, unspecified; D51.9 Vitamin B12 deficiency anemia, unspecified
CPT/HCPCS: 80053; 80186; 82607; 82746; 84443

== ENCOUNTER 2023-07-22 14:03 | Outpatient (REF) | payer MEDICARE, MEDICAID, SELFPAY ==
[2023-07-22 14:07] LABS: Source Nasopharynx
[2023-07-22 14:52] LABS: COVID-19 PCR Negative (Negative)
== END 2023-07-22 14:04 | disposition home or self-care (01) ==
LOC: LBN 14:03
PROVIDERS: PCP Family Medicine; Visit Provider Physician Assistant Medical
DX: R05.8 Other specified cough (principal); Z20.822 Contact with and (suspected) exposure to COVID-19
CPT/HCPCS: 87635

== ENCOUNTER → 2023-09-27 00:38 | Outpatient (CLI) | payer MEDICARE, MEDICAID, SELFPAY ==
--- NOTE | 2023-09-27 | DI.CTLCSR_ITS ---
Exam(s) CT CHEST LUNG CANCER SCREEN EXAM: CT CHEST LUNG CANCER SCREEN CLINICAL HISTORY: SCREENING FOR LUNG CA, FORMER SMOKER, Z87.891 TECHNIQUE: Imaging Protocol: Axial computed tomography images with coronal and sagittal reformatted images were created and reviewed. Low dose screening protocol. COMPARISON: CT CT CHEST LUNG CANCER SCREEN from 03/31/2022 FINDINGS: Tracheobronchial tree: Tracheostomy. No bronchiectasis or mucus plugging.. Mediastinum and Anya: No dominant adenopathy or fluid collection. Pulmonary parenchyma: No consolidation or dominant measurable mass. Mild scarring lingula. Mild emp hysematous changes. Lung Nodules: None. Pleura: No effusion. No pneumothorax. Heart: The heart is not dilated. Moderate coronary artery calcifications are seen. Aorta: Thoracic aorta non-dilated. Upper abdomen: Unremarkable. Bones: Unremarkable for age. Soft Tissues: Unremarkable. IMPRESSION: No suspicious pulmonary nodules. Lung RADS Cat 1 - Negative: No nodules and definitely benign nodules Lung-RADS 1.0 CATEGORIES: Category 0 - Prior chest CT exam(s) being located for comparison. Category 1 - Annual screening in 12 months. No nodules or definitely benign nodules. Category 2 - Annual screening in 12 months. Benign appearance. Nodules with low likelihood of becomin g active cancer. Category 3 - 6-month follow-up. Probably benign. Short-term follow-up suggested. Nodules with low lik elihood of becoming active cancer. Category 4A - 3-month follow-up and CT/PET if >8 mm in size. Suspicious finding. Findings which requi re additional testing. Category 4B - Findings which require additional testing and tissue sampling. Category 4X - Category 3 or 4 nodules with additional features or imaging findings that increases the suspicion of malignancy. Modifier S- Potentially clinically significant findings (non lung cancer) RADIATION DOSE DELIVERED: Total DLP DATA REPOSITORY: All CT scans at this facility are submitted to the National Radiology Data Registry (NRDR) Dose Index Registry (DIR) with the [employer] (ACR). RADIATION OPTIMIZATION: All CT scans at this facility use at least one of these dose optimization te chniques: automated exposure control; mA and/or kV adjustment per patient size (includes targeted exa ms where dose is matched to clinical indication); or iterative reconstruction.
== END ==
PROVIDERS: PCP Family Medicine; Visit Provider Family Medicine
DX: Z12.2 Encounter for screening for malignant neoplasm of respiratory organs (principal); Z87.891 Personal history of nicotine dependence
CPT/HCPCS: 71271

== ENCOUNTER 2024-02-06 10:46 | Outpatient (REF) | payer MEDICARE, MEDICAID, SELFPAY ==
[2024-02-06 15:43] LABS: HGB 14.6 g/dL (13.5-17.5); MCV 97 fL (80-95); MPV 11.3 fL (8.0-11.0); Platelet Count 234 10^3/uL (130-400); RBC 4.42 10^6/uL (4.36-5.78); RDW 13.4 % (11.8-14.1); RDW-SD 48.6 fL; WBC 4.73 10^3/uL (4.4-10.8)
[2024-02-06 16:59] LABS: ALT 46 U/L (16-63); AST 50 U/L (15-37); Albumin 3.4 g/dL (3.4-5.0); Alkaline Phosphatase 94 U/L (46-116); Bilirubin, Total 0.5 mg/dL (0.2-1.0); Calculated LDL 132 mg/dL (<100); Cholesterol 257 mg/dL (<200); Folate 5.2 ng/mL (8.6-20.0); HDL Cholesterol 85 mg/dL (40-60); TSH (W/Ref FT4) 5.25 uIU/mL (0.36-3.74); Total Protein 7.1 g/dL (6.4-8.2); Triglyceride 200 mg/dL (<150); Vitamin B12 317 pg/mL (193-986)
[2024-02-06 17:17] LABS: Bilirubin, Direct 0.2 mg/dL (0.0-0.2); FREE T4 0.54 ng/dL (0.76-1.46)
== END 2024-02-06 10:47 | disposition home or self-care (01) ==
LOC: NCHCN 10:46
PROVIDERS: PCP Family Medicine; Visit Provider Family Medicine
DX: E78.5 Hyperlipidemia, unspecified (principal); D53.1 Other megaloblastic anemias, not elsewhere classified; E03.9 Hypothyroidism, unspecified; K76.0 Fatty (change of) liver, not elsewhere classified
CPT/HCPCS: 80061; 80076; 85027; 82607; 82746; 84439; 84443

== ENCOUNTER 2024-06-18 18:46 | Outpatient (REF) | payer MEDICARE, MEDICAID, SELFPAY ==
[2024-06-18 16:50] LABS: TSH (W/Ref FT4) 14.31 uIU/mL (0.36-3.74)
[2024-06-18 18:11] LABS: FREE T4 0.81 ng/dL (0.76-1.46)
== END 2024-06-18 18:47 | disposition home or self-care (01) ==
LOC: NCHCN 18:46
PROVIDERS: PCP Family Medicine; Visit Provider Family Medicine
DX: E03.9 Hypothyroidism, unspecified (principal)
CPT/HCPCS: 84439; 84443

== ENCOUNTER 2025-01-15 09:42 | Emergency (ER) | payer MEDICARE, MEDICAID, SELFPAY ==
[2025-01-15] VITALS (32 sets, daily range): BP systolic 125–169; BP diastolic 69–112; PULSE 79–127; RESP 11–29; TEMP 36.1; O2SAT 97–100
--- NOTE | 2025-01-15 09:58 | ED.GENADUL_ITS ---
Discharge Plan Disposition Patient Disposition: Home Condition: Stable Discharge Details Clinical Impression: Gastroenteritis Primary Care Provider: Kasey العراقي ED Provider: Jordan Wesley Home Meds and New Rx's Prescriptions: New ondansetron 4 mg tablet,disintegrating 4 mg PO Q8H PRNQty: 30 0RF Continued acyclovir 200 mg capsule 400 mg PO Q4H Boost 0.04 gram- 1 kcal/mL liquid PO levothyroxine 100 mcg capsule 100 mcg PO DAILY gabapentin 300 mg capsule 600 mg PO TID oxycodone 5 MG tablet 5 mg PO TID Patient Comments: 04/07/15 - ran out yesterday acetaminophen [Tylenol] 325 mg Capsule 325 mg PO ONCE PRN Discharge Instructions Instructions: Viral gastroenteritis in adults, Ondansetron Additional Instructions: You were seen in the emergency department for your nausea and vomiting with mild abdominal cramping. Your symptoms improved with Tylenol, IV Motrin called Toradol, IV Zofran which is a nausea medicine. We did provide you with IV fluids, your labs only show that you are mildly dehydrated, you may have a viral stomach bug or gastroenteritis. I have sent a prescription for oral dissolving tablets of ondansetron which will help with nausea, take this 20 to 30 minutes before attempting oral intake 3 times per day. Please take regular dose of Tylenol and Motrin as tolerated, please return to the emergency department for severe increase in intractable nausea or vomiting, increasing abdominal pain especially with fever, any other emergent concerns. Referrals: Kasey العراقي MD [Primary Care Provider] - [facility] General Date/Time Provider Initiated Documentation: 01/15/25 09:58 . HPI Narrative: 64 year-old male with chronic trach presents to ED today by POV/ambulating with a chief complaint of nausea/vomiting, intractable, with onset for the past 5 days. Quality described as mild abdominal cramps, able to keep fluids down, no radiation to fever, body aches, severe abdominal pain, coffee- ground/hematemesis, black stools, endorses mild cough without shortness of breath. Severity is described as moderate. Palliating factors include nothing specific attempted. Provoking factors include nothing specific. Events leading up to the incident/Associated Symptoms: Patient takes care of his girlfriend at home who just had a stroke 1.5 months ago. Patient not anticoagulated. Related Data Home Medications ?Medication ?Instructions ?Recorded ?Confirmed oxycodone 5 mg tablet 5 mg PO TID 04/07/15 01/15/25 acyclovir 200 mg capsule 400 mg PO Q4H 03/09/19 01/15/25 food supplemt, lactose-reduced ml PO 03/09/19 05/21/19 0.04 gram-1 kcal/mL oral liquid (Boost) gabapentin 300 mg capsule 600 mg PO TID 03/09/19 01/15/25 levothyroxine 100 mcg capsule 100 mcg PO DAILY 03/09/19 01/15/25 acetaminophen 325 mg capsule 325 mg PO ONCE PRN 07/03/19 07/03/19 (Tylenol) ondansetron 4 mg disintegrating 4 mg PO Q8H PRN #30 tabs 01/15/25 tablet Previous Rx's ?Medication ?Instructions ?Recorded ondansetron 4 mg disintegrating 4 mg PO Q8H PRN #30 tabs 01/15/25 tablet Allergies Allergy/AdvReac Type Severity Reaction Status Date / Time venom-honey bee (bee venom Allergy Severe Anaphylaxsi Unverified 01/15/25 09:52 (honey bee)) s Penicillins Allergy Intermediate Hives Unverified 01/15/25 09:52 General Stated Complaint: Nausea/Vomit/Diar SHELLI: 3 Review of Systems All systems reviewed & are unremarkable except as noted in HPI and below Exam Narrative Exam Narrative: GENERAL APPEARANCE: Well-nourished, non-toxic, awake and alert, atraumatic, no acute distress. SKIN: Warm, pink, dry, intact, without rashes/lesions/ulcerations. HEAD: Normocephalic, atraumatic, normal hair distribution for gender/age. EYES: Normal conjunctiva, no exudates on lids/lashes. ENT: Nares patent, no circumoral cyanosis, no facial swelling, dry mucous membranes NECK: Supple, trachea midline, painless cervical ROM. LUNGS/CHEST: Lungs CTA bilaterally-no rhonchi/rales/wheezes diffusely, non- labored respirations, normal A/P diameter, symmetrical expansion, no chest wall deformity HEART (CV/PV): Regular rate and rhythm without murmur, no peripheral edema, no JVD. ABDOMEN: Soft, non-distended, no guarding, no focal tenderness or peritoneal signs. MSK: Normal ROM, no swelling/deformity to bilateral UEs or LEs, moving all extremities without weakness, no cyanosis, spine midline without tenderness, normal curvature. NEURO: Mental Status AAOx4 - alert to person, place, time, events No facial droop, no forehead involvement. Motor: No focal weakness - strength 5/5 in bilateral UEs and LEs, proximal and distal, symmetric. Sensory: sensation intact to light touch globally. Gait normal: patient ambulated without ataxia into ED room. PSYCH: euthymic, cooperative, pleasant, appropriate speech-chronic trach Course Vital Signs Vital signs: Vital Signs Temperature 36.1 C L 01/15/25 09:44 Pulse 127 H 01/15/25 09:44 Respiratory Rate 17 01/15/25 09:44 Blood Pressure 165/112 H 01/15/25 09:44 Pulse Oximetry 100 01/15/25 09:44 Temperature 36.1 C L 01/15/25 09:51 Temperature Source Tympanic 01/15/25 09:51 Pulse 127 H 01/15/25 09:51 Respiratory Rate 17 01/15/25 09:51 Blood Pressure 165/112 H 01/15/25 09:51 Blood Pressure Position Sitting 01/15/25 09:51 Pulse Oximetry 100 01/15/25 09:51 Oxygen Delivery Method Room Air 01/15/25 09:51 Oxygen Flow Rate 0 01/15/25 09:51 Pain Level 0 01/15/25 09:51 Medical Decision Making This dictation utilizes [id number] dictation software and may contain unedited grammatical errors. 64 year-old male with chronic trach presents to ED today by POV/ambulating with a chief complaint of nausea/vomiting, intractable, with onset for the past 5 days. Quality described as mild abdominal cramps, able to keep fluids down, no radiation to fever, body aches, severe abdominal pain, coffee- ground/hematemesis, black stools, endorses mild cough without shortness of breath. Severity is described as moderate. Palliating factors include nothing specific attempted. Provoking factors include nothing specific. Events leading up to the incident/Associated Symptoms: Patient takes care of his girlfriend at home who just had a stroke 1.5 months ago. Patients' medical history: History of thyroid cancer and larynx cancer, chronic tracheostomy. Family and social history: Lives at home with his girlfriend. Pertinent exam findings / vital signs include lungs CTA, benign posterior oropharynx, dry mucous membranes, benign abdomen, mildly tachycardic, afebrile, no active vomiting Differential / pathologies of concern include gastroenteritis, aspiration pneumonia, electrolyte abnormality, sepsis, metastasis. Diagnostic studies of: -CBC, CMP, lipase, magnesium, troponin, lactate, COVID/flu/RSV PCR, urinalysis, CT chest/ABD/pelvis with contrast. -CBC shows mild leukocytosis without anemia, no left shift, mildly elevated neutrophils and low lymphocytes nonspecific -CMP shows hyponatremia at 148, normal potassium, mildly elevated calcium, mildly elevated creatinine at 1.4 likely acute dehydration -Magnesium within normal limits -Troponin negative -Lipase is mildly elevated at 86 not to the level of acute pancreatitis -COVID/flu/RSV PCR negative -Lactate negative -UA not provided -CT shows no acute pathology in the chest abdomen or pelvis Interventions of: -IV Tylenol, Toradol, Zofran, IVF LR 1L. -Patient tolerating p.o. intake after fluids and a dose of Zofran, plan to Rx ondansetron ED Course/Assessment/Plan: 64-year-old male with chronic trach presents with 5 days of nausea and vomiting, he was given conservative medications of Tylenol, Toradol, Zofran and 1 L of IV lactated Ringer's with significant improvement in his symptoms, none of his laboratory or imaging workup requires admission he likely has a viral gastroenteritis, I did provide him with a Zofran prescription with strict return criteria for any further intractable nausea or vomiting despite treatment especially with fever, severe increase in abdominal pain or cough developing fevers or respiratory distress. Findings not consistent with dangerous electrolyte abnormality, acute surgical abdominal pathology, aspiration pneumonia, pancreatitis or other biliary tree pathology. Disposition of Gastroenteritis. Patient verbalized understanding of the plan and return to ED criteria and engaged in shared decision making. Medical Records Medical records reviewed: Yes I reviewed the patient's medical records. Imaging Data Radiologic Study: Attestation: I personally reviewed and interpreted this imaging study as follows: Imaging: CT Scan Radiologist's impression: EXAM: CT CHEST/ABD/PEL W CLINICAL HISTORY: nausea/vomiting, high risk for asp PNA. TECHNIQUE: Imaging Protocol: Axial computed tomography images with coronal and sagittal reformatted images were created and reviewed CONTRAST MATERIAL: Intravenous: Omnipaque 350 Contrast volume:100 ml Oral: None COMPARISON: CT ABD PELVIS WITH CONTRAST from 04/07/[address] CHEST LUNG CANCER SCREEN from 09/27/2023 FINDINGS: CHEST: LUNGS: There is a tracheostomy which appears in satisfactory position.. There are no lung infiltrates nor pleural effusions. No ominous pulmonary nodules. There is no significant mucous in the trachea and mainstem bronchi nor within the bronchi. There is no bronchiectasis. MEDIASTINUM: There is no hilar nor mediastinal adenopathy. CARDIAC: Heart size is normal. There is no pericardial effusion.Caliber of the thoracic aorta is within normal limits.. No evidence of aortic dissection. OSSEOUS: No significant osseous lesions.No fractures.. ABDOMEN: There is no ascites. LIVER: There are no focal hepatic lesions nor dilatation of intrahepatic ducts. GALLBLADDER/BILIARY: No obvious gallbladder pathology. CBD is not dilated. PANCREAS: No evidence of pancreatic mass nor dilatation of the pancreatic duct. SPLEEN: Spleen is not enlarged. There are no intrasplenic lesions. Splenic and portal veins are patent. ADRENALS: There are no significant adrenal masses. KIDNEYS: No calculi nor hydronephrosis. No solid renal masses. No cysts evident. ABDOMINAL AORTA: Abdominal aorta is not enlarged. Significant stenosis noted in the right common iliac artery. No aneurysms evident in the iliac arteries. LYMPH NODES: There is no retroperitoneal nor paraaortic adenopathy. ABDOMINAL WALL: No evidence of significant anterior abdominal wall nor inguinal hernia. GI: There is no evidence of bowel obstruction. PELVIS: LYMPH NODES: There is no intrapelvic nor inguinal adenopathy. GI: No evidence of appendicitis.Redundant sigmoid which extends up to the transverse colon. No evidence of diverticulitis. URINARY BLADDER: No calculi nor masses evident. Pelvic ureters are not dilated. REPRODUCTIVE: Mildly enlarged prostate gland. Seminal vesicles unremarkable. OSSEOUS: Chronic disc space narrowing at L2-3 level and L5-S1. No listhesis. There is a sclerotic non expansile bone lesion in right-side of the pelvis right iliac bone this appears to have been present on prior CT scan of March 2015 and is therefore probably benign bone island. There is also a hyperdensity in the central aspect of the sacrum at S2 level which has slightly increased in size from 2015 and small probably also benign bone. IMPRESSION: 1. Tracheostomy appears satisfactory 2. No significant pulmonary findings nor pleural effusions nor intrathoracic adenopathy. 3. No acute findings in the abdomen and pelvis 4. 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 Lab Data Lab results reviewed: Yes I reviewed the patient's lab results. Labs: Laboratory Tests Range/Units 01/15/25 01/15/25 10:19 10:25 WBC (4.4-10.8) 10^3/uL 12.77 H RBC (4.36-5.78) 10^6/uL 4.99 Hgb (13.5-17.5) g/dL 16.7 Hct (40.0-50.0) % 48.7 MCV (80-95) fL 98 H MCH (27.0-33.0) pg 33.5 H MCHC (32.0-36.0) % 34.3 RDW (11.8-14.1) % 12.0 Plt Count (130-400) 10^3/uL 215 MPV (8.0-11.0) fL 11.3 H Immature Gran % % 0.6 Neutrophils % % 83.0 Lymphocytes % % 7.4 Monocytes % % 8.5 Eosinophils % % 0.0 Basophils % % 0.5 Nucleated RBC % (0.0-0.3) % 0.0 Absolute Neutrophils (1.2-6.7) 10^3/uL 10.60 H Absolute Lymphocytes (1.2-3.4) 10^3/uL 0.94 L Absolute Monocytes (0.1-0.8) 10^3/uL 1.09 H Absolute Eosinophils (0.0-0.7) 10^3/uL 0.00 Absolute Basophils (0.0-0.2) 10^3/uL 0.06 VBG Lactate (<or=2.0) mmol/L 2.1 Sodium (136-145) mmol/L 148 H Potassium (3.5-5.1) mmol/L 3.8 Chloride (98-107) mmol/L 109 H Carbon Dioxide (21.0-32.0) mmol/L 21.8 Anion Gap (3-11) mmol/L 17.2 H BUN (7-18) mg/dL 37 H Creatinine (0.70-1.30) mg/dL 1.4 H Est GFR (CKD-EPI 2020) (mL/min/1.73m2) 55.43 Glucose (74-106) mg/dL 176 H Calcium (8.5-10.1) mg/dL 10.4 H Magnesium (1.8-2.4) mg/dL 2.3 Total Bilirubin (0.2-1.0) mg/dL 1.48 H AST (15-37) U/L 33 ALT (16-63) U/L 42 Alkaline Phosphatase (46-116) U/L 80 Troponin I (<or=76) ng/L 13 Total Protein (6.4-8.2) g/dL 8.9 H Albumin (3.4-5.0) g/dL 4.3 Lipase (<78) U/L 86 H COVID-19 Source Nasopharynx SARS-CoV-2 (PCR) (Negative) Negative Influenza Type A (PCR) (Negative) Negative Influenza Type B (PCR) (Negative) Negative RSV (PCR) (Negative) Negative Quality:SDOH Health Related Social Needs: No Data to Display PFSH All Active Problems (Updated 01/15/25 @ 14:02 by ARMANDO Mittal) Gastroenteritis (Acute) Encounter for screening colonoscopy (Acute) Medical History (Updated 01/15/25 @ 14:02 by ARMANDO Mittal) Hypothyroidism post surgical Genital herpes Peripheral neuropathy High cholesterol Thyroid cancer 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
--- NOTE | 2025-01-15 10:00 | DI.CT_ITS ---
Exam(s) CT CHEST/ABD/PEL W EXAM: CT CHEST/ABD/PEL W CLINICAL HISTORY: nausea/vomiting, high risk for asp PNA. TECHNIQUE: Imaging Protocol: Axial computed tomography images with coronal and sagittal reformatted images were created and reviewed CONTRAST MATERIAL: Intravenous: Omnipaque 350 Contrast volume:100 ml Oral: None COMPARISON: CT ABD PELVIS WITH CONTRAST from 04/07/[address] CHEST LUNG CANCER SCREEN from 09/27/2023 FINDINGS: CHEST: LUNGS: There is a tracheostomy which appears in satisfactory position.. There are no lung infiltrate s nor pleural effusions. No ominous pulmonary nodules. There is no significant mucous in the trache a and mainstem bronchi nor within the bronchi. There is no bronchiectasis. MEDIASTINUM: There is no hilar nor mediastinal adenopathy. CARDIAC: Heart size is normal. There is no pericardial effusion.Caliber of the thoracic aorta is wit hin normal limits.. No evidence of aortic dissection. OSSEOUS: No significant osseous lesions.No fractures.. ABDOMEN: There is no ascites. LIVER: There are no focal hepatic lesions nor dilatation of intrahepatic ducts. GALLBLADDER/BILIARY: No obvious gallbladder pathology. CBD is not dilated. PANCREAS: No evidence of pancreatic mass nor dilatation of the pancreatic duct. SPLEEN: Spleen is not enlarged. There are no intrasplenic lesions. Splenic and portal veins are zuleta nt. ADRENALS: There are no significant adrenal masses. KIDNEYS: No calculi nor hydronephrosis. No solid renal masses. No cysts evident. ABDOMINAL AORTA: Abdominal aorta is not enlarged. Significant stenosis noted in the right common heath ac artery. No aneurysms evident in the iliac arteries. LYMPH NODES: There is no retroperitoneal nor paraaortic adenopathy. ABDOMINAL WALL: No evidence of significant anterior abdominal wall nor inguinal hernia. GI: There is no evidence of bowel obstruction. PELVIS: LYMPH NODES: There is no intrapelvic nor inguinal adenopathy. GI: No evidence of appendicitis.Redundant sigmoid which extends up to the transverse colon. No evide nce of diverticulitis. URINARY BLADDER: No calculi nor masses evident. Pelvic ureters are not dilated. REPRODUCTIVE: Mildly enlarged prostate gland. Seminal vesicles unremarkable. OSSEOUS: Chronic disc space narrowing at L2-3 level and L5-S1. No listhesis. There is a sclerotic non expansile bone lesion in right-side of the pelvis right iliac bone this appe ars to have been present on prior CT scan of March 2015 and is therefore probably benign bone island. There is also a hyperdensity in the central aspect of the sacrum at S2 level which has slightly incre ased in size from 2015 and small probably also benign bone. IMPRESSION: 1. Tracheostomy appears satisfactory 2. No significant pulmonary findings nor pleural effusions nor intrathoracic adenopathy. 3. No acute findings in the abdomen and pelvis 4. 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 Findings discussed with ER provider 01/15/2025 at 12:50 p.m. RADIATION DOSE DELIVERED: 268.77mGy.cm Total DLP DATA REPOSITORY: All CT scans at this facility are submitted to the National Radiology Data Registry (NRDR) Dose Index Registry (DIR) with the [employer] ([employer]). RADIATION OPTIMIZATION: All CT scans at this facility use at least one of these dose optimization te chniques: automated exposure control; mA and/or kV adjustment per patient size (includes targeted exa ms where dose is matched to clinical indication); or iterative reconstruction.
[2025-01-15] MEDS: ACETAMINOPHEN 1,000 MG/100 ML BAG 400 MG IVPB (10:24)
[2025-01-15] MEDS: Lactated Ringers 1,000 ML 1000 ML IV (10:25)
[2025-01-15] MEDS: Ketorolac 15 MG/ML VIAL IVP (10:25)
[2025-01-15] MEDS: Ondansetron 4 MG/2 ML VIAL IVP (10:25)
[2025-01-15 10:27] LABS: Abs Immature Grans 0.08 10^3/uL (0.0-0.06); Absolute Lymphocyte Count 0.94 10^3/uL (1.2-3.4); Basophils % 0.5 %; HCT 48.7 % (40.0-50.0); HGB 16.7 g/dL (13.5-17.5); Immature Grans % 0.6 %; Lymphocytes % 7.4 %; MCH 33.5 pg (27.0-33.0); MCHC 34.3 % (32.0-36.0); MCV 98 fL (80-95); MPV 11.3 fL (8.0-11.0); Monocytes % 8.5 %; Platelet Count 215 10^3/uL (130-400); RBC 4.99 10^6/uL (4.36-5.78); RDW-SD 43.5 fL; WBC 12.77 10^3/uL (4.4-10.8)
[2025-01-15 10:30] LABS: Absolute Basophil Count 0.06 10^3/uL (0.0-0.2); Absolute Monocyte Count 1.09 10^3/uL (0.1-0.8); Lactate 2.1 mmol/L (<or=2.0)
[2025-01-15 10:49] LABS: ALT 42 U/L (16-63); AST 33 U/L (15-37); Albumin 4.3 g/dL (3.4-5.0); Alkaline Phosphatase 80 U/L (46-116); Anion Gap 17.2 mmol/L (3-11); BUN 37 mg/dL (7-18); Bilirubin, Total 1.48 mg/dL (0.2-1.0); CO2 21.8 mmol/L (21.0-32.0); CREATININE 1.4 mg/dL (0.70-1.30); Calcium 10.4 mg/dL (8.5-10.1); Chloride 109 mmol/L (98-107); Estimated GFR 55.43 (mL/min/1.73m2); Glucose 176 mg/dL (74-106); Lipase 86 U/L (<78); Magnesium 2.3 mg/dL (1.8-2.4); Potassium 3.8 mmol/L (3.5-5.1); Sodium 148 mmol/L (136-145); Total Protein 8.9 g/dL (6.4-8.2); Troponin I 13 ng/L (<or=76)
[2025-01-15 11:09] LABS: COVID-19 PCR Negative (Negative); Influenza A PCR Negative (Negative); Influenza B PCR Negative (Negative); RSV PCR Negative (Negative)
[2025-01-15 11:10] LABS: Source Nasopharynx
[2025-01-15] MEDS: Normal Saline - Diluent 50 ML VIAL IJ (12:06)
[2025-01-15] MEDS: Omnipaque 350 MG/ML 500 ML BTL-Imaging package 100 ML IJ (12:07)
== END 2025-01-15 14:30 | disposition home or self-care (01) ==
PROVIDERS: Emergency Provider Physician Assistant; PCP Family Medicine
DX: K52.9 Noninfective gastroenteritis and colitis, unspecified (principal); E03.9 Hypothyroidism, unspecified; Z85.850 Personal history of malignant neoplasm of thyroid; Z85.21 Personal history of malignant neoplasm of larynx; Z87.891 Personal history of nicotine dependence
CPT/HCPCS: 36415; 74177; 80053; 83690; 87637; 96374; 96375; 99285; 71260; 83605; 83735; 84484; 85025; J0131; J1885; J2405

== ENCOUNTER 2025-03-29 19:17 | Outpatient (REF) | payer MEDICARE, MEDICAID, SELFPAY ==
[2025-03-29 21:45] LABS: HGB 14.1 g/dL (13.5-17.5); MCH 32.8 pg (27.0-33.0); MCHC 34.4 % (32.0-36.0); MCV 95 fL (80-95); MPV 10.8 fL (8.0-11.0); Platelet Count 263 10^3/uL (130-400); RDW 12.8 % (11.8-14.1); RDW-SD 44.9 fL; WBC 6.03 10^3/uL (4.4-10.8)
[2025-03-29 22:21] LABS: ALT 29 U/L (16-63); AST 43 U/L (15-37); Albumin 3.5 g/dL (3.4-5.0); Alkaline Phosphatase 100 U/L (46-116); Anion Gap 8.9 mmol/L (3-11); BUN 5 mg/dL (7-18); Bilirubin, Total 0.4 mg/dL (0.2-1.0); CO2 26.1 mmol/L (21.0-32.0); CREATININE 0.9 mg/dL (0.70-1.30); Calcium 8.5 mg/dL (8.5-10.1); Chloride 102 mmol/L (98-107); Estimated GFR 94.19 (mL/min/1.73m2); Glucose 144 mg/dL (74-106); Potassium 3.5 mmol/L (3.5-5.1); Sodium 137 mmol/L (136-145); TSH (W/Ref FT4) 0.24 uIU/mL (0.36-3.74); Vitamin B12 337 pg/mL (193-986)
[2025-03-29 22:37] LABS: FREE T4 1.03 ng/dL (0.76-1.46)
== END 2025-03-29 19:18 | disposition home or self-care (01) ==
LOC: NCHCN 19:17
PROVIDERS: PCP Family Medicine; Visit Provider Family Medicine
DX: E03.9 Hypothyroidism, unspecified (principal); D53.1 Other megaloblastic anemias, not elsewhere classified; K76.0 Fatty (change of) liver, not elsewhere classified
CPT/HCPCS: 80053; 85027; 82607; 84439; 84443

== ENCOUNTER 2025-06-24 15:24 | Outpatient (REF) | payer MEDICARE, MEDICAID, SELFPAY ==
[2025-06-24 17:36] LABS: TSH (W/Ref FT4) 0.08 uIU/mL (0.36-3.74)
== END 2025-06-24 15:25 | disposition home or self-care (01) ==
LOC: NCHCN 15:24
PROVIDERS: PCP Family Medicine; Visit Provider Family Medicine
DX: E03.9 Hypothyroidism, unspecified (principal)
CPT/HCPCS: 84439; 84443

== ENCOUNTER 2025-07-25 20:11 | Emergency (ER) | payer MEDICARE, MEDICAID, SELFPAY ==
[2025-07-25 20:13] VITALS: BP 157/91; PULSE 85; RESP 20; O2SAT 100
[2025-07-25 20:18] VITALS: BP 157/91; PULSE 85; RESP 20; TEMP 36.1; O2SAT 100
--- NOTE | 2025-07-25 20:31 | W.ED.GENAD ---
Discharge Plan Disposition Patient Disposition: Eloped Discharge Details Clinical Impression: Shortness of breath Primary Care Provider: aKsey العراقي ED Provider: Dylan Hernandez Home Meds and New Rx's Prescriptions: No Action acyclovir 200 mg capsule 400 mg PO Q4H Boost 0.04 gram- 1 kcal/mL liquid PO levothyroxine 100 mcg capsule 100 mcg PO DAILY gabapentin 300 mg capsule 600 mg PO TID oxycodone 5 MG tablet 5 mg PO TID Patient Comments: 04/07/15 - ran out yesterday ondansetron 4 mg tablet,disintegrating 4 mg PO Q8H PRNQty: 30 0RF acetaminophen [Tylenol] 325 mg Capsule 325 mg PO ONCE PRN HPI General Date/Time Provider Initiated Documentation: 07/25/25 20:17. HPI Narrative: ED course: Shortly after patient's arrival via ambulance, I was called bedside by the patient's nurse prior to meeting the patient, as she inform me that he wanted to leave. I briefly spoke with the patient, introduced myself, and asked what the problem is he states that he wants to leave. He is ambulatory, his vital signs are within normal limits, he denies any emergent complaints at this time. Asked the patient return to his room in order to be provided discharge documentation however he left the department prior to production of such documentation and eloped. Disposition: Elopement Related Data Home Medications ?Medication ?Instructions ?Recorded ?Confirmed oxycodone 5 mg tablet 5 mg PO TID 04/07/15 01/15/25 acyclovir 200 mg capsule 400 mg PO Q4H 03/09/19 01/15/25 food supplemt, lactose-reduced ml PO 03/09/19 05/21/19 0.04 gram-1 kcal/mL oral liquid (Boost) gabapentin 300 mg capsule 600 mg PO TID 03/09/19 01/15/25 levothyroxine 100 mcg capsule 100 mcg PO DAILY 03/09/19 01/15/25 acetaminophen 325 mg capsule 325 mg PO ONCE PRN 07/03/19 07/03/19 (Tylenol) ondansetron 4 mg disintegrating 4 mg PO Q8H PRN #30 tabs 01/15/25 tablet Previous Rx's ?Medication ?Instructions ?Recorded ondansetron 4 mg disintegrating 4 mg PO Q8H PRN #30 tabs 01/15/25 tablet Allergies Allergy/AdvReac Type Severity Reaction Status Date / Time venom-honey bee (bee venom Allergy Severe Anaphylaxsi Unverified 01/15/25 09:52 (honey bee)) s Penicillins Allergy Intermediate Hives Unverified 01/15/25 09:52 General Stated Complaint: SOB SHELLI: 3 Course Vital Signs Vital signs: Vital Signs Pulse 85 07/25/25 20:13 Respiratory Rate 20 07/25/25 20:13 Blood Pressure 157/91 H 07/25/25 20:13 Pulse Oximetry 100 07/25/25 20:13 Temperature 36.1 C L 07/25/25 20:18 Temperature Source Tympanic 07/25/25 20:18 Pulse 85 07/25/25 20:18 Respiratory Rate 20 07/25/25 20:18 Blood Pressure 157/91 H 07/25/25 20:18 Blood Pressure Position Supine 07/25/25 20:13 Pulse Oximetry 100 07/25/25 20:18 Oxygen Delivery Method Room Air 07/25/25 20:13 Oxygen Flow Rate 0 07/25/25 20:13 PFSH All Active Problems (Updated 07/25/25 @ 20:34 by Dylan Hernandez MD) Shortness of breath (Acute) Encounter for screening colonoscopy (Acute) Medical History (Updated 07/25/25 @ 20:34 by Dylan Hernandez MD) Hypothyroidism post surgical Genital herpes Peripheral neuropathy High cholesterol Thyroid cancer 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
[2025-07-25 20:35] VITALS: RESP 20; O2SAT 100
== END 2025-07-25 20:45 | disposition left against medical advice (07) ==
PROVIDERS: Emergency Provider General Practice; PCP Family Medicine
DX: R06.02 Shortness of breath (principal); Z53.21 Procedure and treatment not carried out due to patient leaving prior to being seen by health care provider

== ENCOUNTER 2025-07-29 16:28 | Outpatient (REF) | payer MEDICARE, MEDICAID, SELFPAY ==
[2025-07-29 21:15] LABS: TSH (W/Ref FT4) 2.13 uIU/mL (0.36-3.74)
== END 2025-07-29 16:29 | disposition home or self-care (01) ==
LOC: NCHCN 16:28
PROVIDERS: PCP Family Medicine; Visit Provider Family Medicine
DX: E03.9 Hypothyroidism, unspecified (principal)
CPT/HCPCS: 84443